=== PATIENT | female | born 1975 | race Caucasian/White ===

== ENCOUNTER 2023-10-01 17:36 | Emergency (ER) | payer MEDICARE, MEDICAID ==
[~2023-10-01] VITALS: Ht 157.5 cm; Wt 103.8 kg
[2023-10-01 17:51] VITALS: TEMP 98.6
[2023-10-01] MEDS ORDERED: LR 1,000 ML IV ONE (19:00)
[2023-10-01] MEDS ORDERED: Morphine 4 MG/ML VIAL IV PRN (19:00)
[2023-10-01] MEDS ORDERED: Ondansetron 4 MG/2 ML VIAL IV ONE (19:00)
[2023-10-01 20:00] LABS: BASO % 0.2 % (0.0-2.0); EOS % 0.1 % (0.0-4.0); GRAN # 15.2 K/mm3 (1.4-6.5); GRAN % 81.9 % (42.2-75.2); HEMATOCRIT 37.6 % (37.0-47.0); HEMOGLOBIN 11.6 g/dl (12.5-16.0); LYMPH # 2.4 K/mm3 (1.2-3.4); MEAN CELL VOLUME 80 fl (80.0-100.0); MEAN CORPUSCULAR HEMOGLOBIN 25 pg (27-31); MEAN CORPUSCULAR HGB CONC 31 g/dl (33.0-37.0); MEAN PLATELET VOLUME 9.4 fl (7.4-10.4); MONO # 0.8 K/mm3 (0.1-0.6); MONO % 4.4 % (1.7-9.3); PLATELET COUNT 363 K/mm3 (130-400); RED BLOOD COUNT 4.69 M/mm3 (4.10-5.30); REDCELL DISTRIBUTION WIDTH-CV 14.9 % (11.5-14.5)
[2023-10-01 20:19] LABS: ALBUMIN 3.4 g/dL (3.5-5.0); BILIRUBIN,TOTAL 0.9 mg/dL (0.2-1.2); CALCIUM 9.4 mg/dL (8.4-10.2); CREATININE, serum 0.77 mg/dL (0.57-1.11); TOTAL PROTEIN 8.4 g/dl (6.2-8.1)
[2023-10-01] MEDS ORDERED: Iohexol 300 - 100 ML VIAL IV ONE (20:47)
[2023-10-01] MEDS ORDERED: NS 50 ML IV ONE (20:56)
[2023-10-01 21:17] LABS: COLLECTION METHOD CLEAN CATCH
[2023-10-01 21:18] LABS: URINE APPEARANCE CLEAR (CLEAR/HAZY); URINE COLOR Yellow (YELLOW)
[2023-10-01 21:19] LABS: PH 6.5 (5.0-8.5); URINE BLOOD 3+ (NEGATIVE); URINE GLUCOSE 1+ (NEGATIVE); URINE KETONE 2+ (NEGATIVE); URINE NITRATE Negative (NEGATIVE); URINE PROTEIN(semi-quant) 1+ (NEGATIVE); URINE UROBILINOGEN 0.2 E.U/dL (0.2-1.0)
[2023-10-01] MEDS ORDERED: FLOMAX 0.40.4 MG/CAP PO (21:29)
[2023-10-01] MEDS ORDERED: ZOFRAN ODT4 MG PO (21:29)
[2023-10-01] MEDS ORDERED: Ketorolac 15 MG/ML VIAL IV ONE (21:30)
[2023-10-01 21:41] VITALS: BP 141/90; PULSE 73
== END 2023-10-01 21:50 | disposition home or self-care (01) ==
LOC: COL.ER 17:36
PROVIDERS: Emergency Medicine
DX: N13.2 Hydronephrosis with renal and ureteral calculous obstruction (principal)
CPT/HCPCS: J1885; J2270; J2405; J7120; Q9967

== ENCOUNTER 2023-12-06 16:41 | Emergency (ER) | payer MEDICARE, MEDICAID ==
[~2023-12-06] VITALS: Ht 147.3 cm; Wt 105.9 kg
[~2023-12-06 16:41] MED LIST: FLOMAX 0.40.4 MG/CAP PO; ZOFRAN ODT4 MG PO
[2023-12-06 16:59] VITALS: TEMP 99.4
[2023-12-06] MEDS ORDERED: PERCOCET 325 MG1 TA2 PO (19:43)
[2023-12-06] MEDS ORDERED: Home oxyCODONE/Acetaminophen 5/325 MG #4 TAB/PACK PO ONE (19:45)
[2023-12-06 20:27] VITALS: BP 145/87; PULSE 94
== END 2023-12-06 20:27 | disposition home or self-care (01) ==
LOC: COL.ER 16:41
DX: S20.221A Contusion of right back wall of thorax, initial encounter (principal); W01.0XXA Fall on same level from slipping, tripping and stumbling without subsequent striking against object, initial encounter; Y92.512 Supermarket, store or market as the place of occurrence of the external cause
CPT/HCPCS: A9284